=== PATIENT | female | born 1995 | race Caucasian/White ===

== ENCOUNTER 2021-09-08 13:55 | Emergency (ER) | payer SELFPAY ==
[~2021-09-08] VITALS: Ht 165.1 cm; Wt 69.0 kg
[~2021-09-08 13:55] MED LIST: NAPR-1176 MT
[2021-09-08 14:56] VITALS: BP 136/99
[2021-09-08] MEDS ORDERED: KETOROLAC 30MG/ML VIAL IM ONE (15:45)
[2021-09-08] MEDS ORDERED: IBUP-2029 MT (16:25)
== END 2021-09-08 16:39 | disposition home or self-care (01) ==
LOC: ER 13:55
DX: J02.9 Acute pharyngitis, unspecified (principal); R05.9 Cough, unspecified; Z20.822 Contact with and (suspected) exposure to COVID-19; Z98.890 Other specified postprocedural states
CPT/HCPCS: 81025; 96372; 99283; J1885